=== PATIENT | male | born 1995 | race Two or more races ===

== ENCOUNTER 2023-02-07 05:24 | Emergency (ER) | payer OTHER ==
[~2023-02-07] VITALS: Ht 165.1 cm; Wt 90.7 kg
[2023-02-07] MEDS ORDERED: DICLOFENAC SODI75 MG PO (06:10)
== END 2023-02-07 06:14 | disposition home or self-care (01) ==
LOC: ER 05:24
DX: S93.401A Sprain of unspecified ligament of right ankle, initial encounter (principal); X58.XXXA Exposure to other specified factors, initial encounter; Y93.9 Activity, unspecified; Y92.9 Unspecified place or not applicable; Y99.8 Other external cause status